=== PATIENT | female | born 1935 | race Caucasian/White ===

== ENCOUNTER 2018-07-23 07:24 | Day surgery (SDC) | payer OTHER ==
[~2018-07-23 07:24] MED LIST: BALANCED SALT SOLN 15 ML OPH IRRIG; LACTATED RINGER'S 1,000 ML IV
[2018-07-23] MEDS ORDERED: TETRACAINE 0.5% 4 ML OPH (07:30)
[2018-07-23] MEDS ORDERED: EPINEPHrine 1 MG INJ (07:31)
[2018-07-23] MEDS ORDERED: NA HYALURONATE/CHONDROITIN 0.5 ML SYG (07:32)
[2018-07-23] MEDS: CARBACHOL 0.01% 1.5 ML OPH INJ (08:45)
[2018-07-23] MEDS: TETRACAINE 0.5% 4 ML OPH OPER ×2 (08:45→08:53)
[2018-07-23] MEDS ORDERED: LIDOCAINE 3.5% GEL TUBE (08:45)
[2018-07-23] MEDS: TOBRAMYCIN 0.3% 3.5 GM OPH OINT (08:46)
[2018-07-23] MEDS: LIDOCAINE 1%/EPI 30 ML INJ INJ (08:46)
[2018-07-23] MEDS: PHENYLephrine 10% 5 ML OPH OPER (08:50)
[2018-07-23] MEDS: LIDOCAINE 3.5% GEL TUBE OPER (08:50)
[2018-07-23] MEDS: TROPICAMIDE 1% 3 ML OPH OPER (08:50)
[2018-07-23] MEDS: MOXIFLOXACIN 0.5% 3 ML OPH OPER (08:51)
[2018-07-23] MEDS: BROMFENAC SODIUM 1.7 ML OPH DROP OPER (08:52)
[2018-07-23] MEDS ORDERED: CEFAZOLIN 1 GM INJ (09:58)
[2018-07-23] MEDS ORDERED: ACETAMINOPHEN 1000MG/100ML IV 100 ML IVPB (10:00)
[2018-07-23] MEDS ORDERED: ONDANSETRON 4 MG INJ IV (10:00)
== END 2018-07-23 12:35 | disposition home or self-care (01) ==
LOC: SDS 07:24
DX: H25.89 Other age-related cataract (principal); H21.81 Floppy iris syndrome; I10 Essential (primary) hypertension; E78.5 Hyperlipidemia, unspecified; Z79.82 Long term (current) use of aspirin
CPT/HCPCS: 66984